=== PATIENT | male | born 1990 | race Caucasian/White ===

== ENCOUNTER 2017-10-15 16:56 | Emergency (ER) | payer MEDICAID ==
[~2017-10-15] VITALS: Ht 180.3 cm; Wt 108.4 kg
[2017-10-15 17:02] VITALS: BP 162/87; Ht 180.3 cm; Wt 108.4 kg
== END 2017-10-15 18:52 | disposition home or self-care (01) ==
LOC: ED 16:56
DX: M25.572 Pain in left ankle and joints of left foot (principal)